=== PATIENT | female | born 1965 | race American Indian/Alaskan Native ===

== ENCOUNTER 2016-10-12 10:08 | Emergency (ER) | payer MEDICAID ==
[2016-10-12 10:37] VITALS: BP 146/99
--- NOTE | 2016-10-12 11:14 | Emergency Department Report ---
Chief Complaint: Dyspnea/Respdistress Stated Complaint: DIFF BREATHING Time Seen by Provider: 10/12/16 11:09 - HPI History of Present Illness: Patient reports difficulty breathing with shaking, productive cough causing chest discomfort that initially started 10/07/16. Patient was seen and treated by her PCP, however to no avail - ROS Review of Systems: all other systems are unremarkable except for documentation in HPI - Exam Vital Signs: Vital Signs 10/12/16 10:32 Temperature 98.4 F Pulse Rate 125 H Respiratory 24 Rate Blood Pressure 146/99 O2 Sat by Pulse 96 Oximetry Physical Exam: Gen: well developed and nourished, NAD Resp: even and unlabored, lungs scattered wheezes throughout, no rales or rhonchi Cardio: heart sounds present S1-S2, tachycardia, no murmur, gallops or ectopy MSE screening note: Focused history and physical exam performed. Due to findings the following was ordered: resp tx, laboratory and radiology studies ordered ED Disposition for MSE Condition: Stable
[2016-10-12] MEDS ORDERED: XOPENEX IH ONE (11:15)
[2016-10-12 11:28] LABS: Basophils % (Auto) 0.8 % (0.0-1.8); Eosinophils % (Auto) 9.1 % (0.0-4.3); Hematocrit 46.4 % (30.3-42.9); Hemoglobin 15.5 gm/dl (10.1-14.3); Mean Corpuscular HGB Conc 33 % (30-34); Mean Corpuscular Hemoglobin 29 pg (28-32); Mean Corpuscular Volume 88 fl (79-97); Platelet Count 225 K/mm3 (140-440); Red Blood Count 5.31 M/mm3 (3.65-5.03); Red Cell Distribution Width 14.9 % (13.2-15.2); White Blood Count 9.9 K/mm3 (4.5-11.0)
[2016-10-12 11:52] LABS: Alanine Aminotransferase 28 units/L (7-56); Albumin 4.2 g/dL (3.9-5); Albumin/Globulin Ratio 1.2 %; Alkaline Phosphatase 106 units/L (35-129); Anion Gap 18 mmol/L; BUN/Creatinine Ratio 7.27; Bilirubin,Total 0.2 mg/dL (0.1-1.2); Blood Urea Nitrogen 8 mg/dL (7-17); Calcium 9.2 mg/dL (8.4-10.2); Carbon Dioxide 25 mmol/L (22-30); Chloride 101.6 mmol/L (98-107); Creatine Kinase 149 units/L (30-135); Creatine Kinase MB 2.2 ng/mL (0.0-4.0); Glucose 105 mg/dL (65-100); Sodium 141 mmol/L (137-145); Total Protein 7.6 g/dL (6.3-8.2)
--- NOTE | 2016-10-12 12:05 | XRay Report ---
ROUTINE CHEST, TWO VIEWS: HISTORY: Dyspnea. The trachea, heart, mediastinal contour, lung brewer and bony thorax are unremarkable. IMPRESSION: Unremarkable chest x-ray.
--- NOTE | 2016-10-14 19:15 | ED Elopement Review ---
ED Pt Elopement review - Results review Lab results: Laboratory Tests 10/12/16 10/12/16 11:21 11:21 WBC 9.9 RBC 5.31 H Hgb 15.5 H Hct 46.4 H MCV 88 MCH 29 MCHC 33 RDW 14.9 Plt Count 225 Lymph % (Auto) 25.4 Jay % (Auto) 10.2 H Eos % (Auto) 9.1 H Baso % (Auto) 0.8 Lymph # 2.5 Jay # 1.0 H Eos # 0.9 H Baso # 0.1 Seg Neutrophils % 54.5 Seg Neutrophils # 5.4 Sodium 141 Potassium 4.0 Chloride 101.6 Carbon Dioxide 25 Anion Gap 18 BUN 8 Creatinine 1.1 Estimated GFR > 60 BUN/Creatinine Ratio 7.27 Glucose 105 H Calcium 9.2 Total Bilirubin 0.2 AST 20 ALT 28 Alkaline Phosphatase 106 Total Creatine Kinase 149 H CK-MB (CK-2) 2.2 CK-MB (CK-2) Rel Index 1.4 Troponin T < 0.010 Total Protein 7.6 Albumin 4.2 Albumin/Globulin Ratio 1.2 Cxr: naf - Call Back decision Pt Call Back Decision: Pt to F/U with PMD (elevated hr likely due to neb, need reassement)
== END 2016-10-12 21:11 | disposition left against medical advice (07) ==
LOC: ED 10:08
DX: R06.00 Dyspnea, unspecified (principal); R05 Cough; R07.89 Other chest pain; Z53.21 Procedure and treatment not carried out due to patient leaving prior to being seen by health care provider
CPT/HCPCS: 36415; 71020; 80053; 82550; 82553; 84484; 85025; 93005; 93010

== ENCOUNTER 2018-10-12 18:23 | Emergency (ER) | payer MEDICAID ==
[2018-10-12 18:49] VITALS: BP 147/86
--- NOTE | 2018-10-12 22:38 | Emergency Department Report ---
ED Rash HPI - HPI Chief Complaint: Skin Rash Stated Complaint: ASTHMA/BUG BITE Time Seen by Provider: 10/12/18 21:55 Duration: 2 Days Location: Back, Upper Extremities, Lower Extremities Rash Symptoms: Yes Itching, No Facial Swelling, No Tongue/Oral Swelling, No Breathing Difficulties, No Choking Sensation, No Wheezing/Dyspnea, No Peeling, No Blistering, No Fever, No Lightheaded, No Malaise, No Myalgias Severity: mild Other History: This is a 53-year-old female nontoxic, well nourished in appearance, no acute signs of distress presents to the ED with c/o of multiple small bites from bedbugs. Patient stated that she changed her room in the house full of other roomates and has been sleeping in a different bed and then developed the symptoms. Patient stated she felt some bite kumar and then that worsened throughout the night. Patient denies any fever, chills, nausea, vomiting, chest pain, front of breath, headache or stiff neck. Patient denies any allergies with past medical history of asthma. Patient states she is currently out of her inhaler and is requesting for her inhaler. Patient otherwise denies any asthma symptoms. ED Review of Systems ROS: Stated complaint: ASTHMA/BUG BITE Other details as noted in HPI Constitutional: denies: chills, fever Eyes: denies: eye pain, eye discharge, vision change ENT: denies: ear pain, throat pain Respiratory: denies: cough, shortness of breath, wheezing Cardiovascular: denies: chest pain, palpitations Endocrine: no symptoms reported Gastrointestinal: denies: abdominal pain, nausea, diarrhea Genitourinary: denies: urgency, dysuria, discharge Musculoskeletal: denies: back pain, joint swelling, arthralgia Skin: rash. denies: lesions Neurological: denies: headache, weakness, paresthesias Psychiatric: denies: anxiety, depression Hematological/Lymphatic: denies: easy bleeding, easy bruising ED Past Medical Hx - Past Medical History Previous Medical History?: Yes Hx Asthma: Yes - Social History Smoking Status: Never Smoker Substance Use Type: None - Medications Home Medications: Home Medications Medication Instructions Recorded Confirmed Last Taken Type Albuterol Sulfate [Ventolin HFA] 2 puff IH Q4H PRN #1 hfa.aer.ad 09/13/18 Unknown Rx traMADol [Ultram] 50 mg PO Q6HR PRN #12 tablet 09/13/18 Unknown Rx ALBUTEROL Inhaler(NF) [VENTOLIN 2 puff IH Q4-6H PRN #1 inha 10/12/18 Unknown Rx Inhaler(NF)] Triamcinolone 0.5% [Kenalog 0.5% 1 applic TP TID #1 tube 10/12/18 Unknown Rx CREAM] diphenhydrAMINE [Benadryl CAP] 25 mg PO Q6HR PRN #20 capsule 10/12/18 Unknown Rx Rash Exam - Exam General: Vital signs noted. No distress. Alert and acting appropriately. HEENT: No Periorbital Edema, No Conjuctival Injection, No Chemosis, No Perioral Edema, No Tongue Edema, No Uvular Edema, No Compromised Airway, No Drooling Lungs: Yes Good Air Exchange (Normal Breath Sounds), No Wheezes, No Ronchi, No Stridor, No Cough, No Labored Respirations, No Retractions, No Use of Accessory Muscles, No Other Abnormal Lung Sounds Heart: Yes Regular, No Murmur Skin: Yes Other (erythematous papule with a central hemorrhagic punctum), No Urticarial Rash, No Maculopapular Rash, No Morbilliform rash, No Bulla(e), No Excoriations, No Weeping, No Tenderness, No Erythema, No Edema, No Encrustations Other: Positive: Abdomen Normal, Neurologic Normal, Musculoskeletal Normal ED Course Vital Signs 10/12/18 18:46 Temperature 98.6 F Pulse Rate 79 Respiratory 16 Rate Blood Pressure 147/86 O2 Sat by Pulse 98 Oximetry - Reevaluation(s) Reevaluation #1: 10/12/18 22:39 Patient is speaking in full sentences with no signs of distress noted. ED Medical Decision Making - Medical Decision Making This is a 53-year-old female that presents with bedbugs. Patient is stable and was examined by me. Patient was educated on proper treatment for bedbugs at home as well as using heat in the bed area. I instructed the patient that she must wash her clothing and heat. Patient discharged with Kenalog cream. Patient was referred to Follow-up with a primary care doctor in 3-5 days or if symptoms worsen and continue return to emergency room as soon as possible. At time of discharge, the patient does not seem toxic or ill in appearance. No acute signs of distress noted. Patient agrees to discharge treatment plan of care. No further questions noted by the patient. Critical care attestation.: If time is entered above; I have spent that time in minutes in the direct care of this critically ill patient, excluding procedure time. ED Disposition Clinical Impression: Bed bug bite Qualifiers: Encounter type: initial encounter Qualified Code(s): W57.XXXA - Bitten or stung by nonvenomous insect and other nonvenomous arthropods, initial encounter Disposition: TO HOME OR SELFCARE Is pt being admited?: No Does the pt Need Aspirin: No Condition: Stable Instructions: Diphenhydramine (By mouth), Insect Bite or Sting (ED) Additional Instructions: Follow-up with a primary care doctor in 3-5 days or if symptoms worsen and continue return to emergency room as soon as possible. Prescriptions: ALBUTEROL Inhaler(NF) [VENTOLIN Inhaler(NF)] 2 puff IH Q4-6H PRN #1 inha PRN Reason: Wheezing diphenhydrAMINE [Benadryl CAP] 25 mg PO Q6HR PRN #20 capsule PRN Reason: Itching Triamcinolone 0.5% [Kenalog 0.5% CREAM] 1 applic TP TID #1 tube Referrals: PRIMARY CAREMD [Primary Care Provider] - 3-5 Days LAN ESPOSITO MD [Staff Physician] - 3-5 Days [facility] [Outside] - 3-5 Days
== END 2018-10-12 23:00 | disposition home or self-care (01) ==
LOC: EDBD → ED 18:23
DX: T14.8XXA Other injury of unspecified body region, initial encounter (principal); J45.909 Unspecified asthma, uncomplicated; W57.XXXA Bitten or stung by nonvenomous insect and other nonvenomous arthropods, initial encounter; Y93.89 Activity, other specified; Y99.8 Other external cause status; Y92.019 Unspecified place in single-family (private) house as the place of occurrence of the external cause
CPT/HCPCS: 99282

== ENCOUNTER 2018-12-20 16:56 | Emergency (ER) | payer MEDICAID ==
--- NOTE | 2018-12-20 17:40 | Emergency Department Report ---
Chief Complaint: Extremity Injury, Lower Stated Complaint: RIGHT ANKLE PAIN Time Seen by Provider: 12/20/18 17:35 - HPI History of Present Illness: This is a 53 y.o. female that presents to ER with pain to RLE s/p fall around 1530 today. Patient reports pain to right foot with weight bearing. Denies swelling or obvious deformity. - ROS Review of Systems: right dorsal pain - Exam Vital Signs: Vital Signs 12/20/18 17:39 Temperature 98.5 F Pulse Rate 96 H Respiratory 18 Rate Blood Pressure 163/89 O2 Sat by Pulse 100 Oximetry MSE screening note: Focused history and physical exam performed. Due to findings the following was ordered: XR right foot Fast track for further evaluation. ED Disposition for MSE Condition: Stable
[2018-12-20 17:42] VITALS: BP 163/89
[2018-12-20] MEDS ORDERED: IBUPROFEN PO ONE ×2 (18:09→18:12)
--- NOTE | 2018-12-20 19:30 | XRay Report ---
EXAM: XR FOOT 3+V RT HISTORY: pain to 3rd to 5th metatarsals TECHNIQUE: 3 views COMPARISON: None available. FINDINGS: There is no acute bony fracture, or joint subluxation or dislocation seen. No focal bone erosion or sclerosis is seen. No evidence for inflammatory or degenerative arthritis is seen. No soft tissue emp hysema, radiodense soft tissue abnormality or foreign body is seen. IMPRESSION: 1. No acute bony fracture, or joint subluxation or dislocation seen. 2. No soft tissue emphysema, radiodense soft tissue abnormality or foreign body seen. This document is electronically signed by Jana Philippe MD., December 20 2018 07:28:16 PM ET
[2018-12-20] MEDS ORDERED: NORCO 5/325 PO ONE (19:55)
--- NOTE | 2018-12-20 20:01 | Emergency Department Report ---
ED Lower Extremity HPI - General Chief Complaint: Extremity Injury, Lower Stated Complaint: RIGHT ANKLE PAIN Time Seen by Provider: 12/20/18 17:35 Source: patient Mode of arrival: Ambulatory Limitations: No Limitations - History of Present Illness Initial Comments: pt is a 53 y/o aaf who rolled her right ankle crossing street today now complains of 7/10 aching tenderness unable to bear weight. Patient did however ambulate to the ED today Complaint: ankle injury Onset/Timin -: hour(s) Injury: Ankle: Right Type of Injury: eversion Place: home Severity: moderate Severity scale (0 -10): 5 Improves With: nothing Worsens With: weight bearing, movement, palpation Context: fall, walking Associated Symptoms: swelling, tingling - Related Data Previous Rx's Medication Instructions Recorded Last Taken Type Albuterol Sulfate [Ventolin HFA] 2 puff IH Q4H PRN #1 hfa.aer.ad 09/13/18 Unknown Rx traMADol [Ultram] 50 mg PO Q6HR PRN #12 tablet 09/13/18 Unknown Rx ALBUTEROL Inhaler(NF) [VENTOLIN 2 puff IH Q4-6H PRN #1 inha 10/12/18 Unknown Rx Inhaler(NF)] Triamcinolone 0.5% [Kenalog 0.5% 1 applic TP TID #1 tube 10/12/18 Unknown Rx CREAM] diphenhydrAMINE [Benadryl CAP] 25 mg PO Q6HR PRN #20 capsule 10/12/18 Unknown Rx Naproxen 500 mg PO BID #30 tablet 12/20/18 Unknown Rx Allergies Allergy/AdvReac Type Severity Reaction Status Date / Time No Known Allergies Allergy Unverified 09/13/18 08:32 ED Review of Systems ROS: Stated complaint: RIGHT ANKLE PAIN Other details as noted in HPI Constitutional: denies: chills, fever Eyes: denies: eye pain, eye discharge, vision change ENT: denies: ear pain, throat pain Respiratory: denies: cough, shortness of breath, wheezing Cardiovascular: denies: chest pain, palpitations Endocrine: no symptoms reported Gastrointestinal: denies: abdominal pain, nausea, diarrhea Genitourinary: denies: urgency, dysuria, discharge Musculoskeletal: joint swelling Skin: as per HPI Neurological: denies: headache, weakness, paresthesias Psychiatric: denies: anxiety, depression Hematological/Lymphatic: denies: easy bleeding, easy bruising ED Past Medical Hx - Past Medical History Previous Medical History?: Yes Hx Asthma: Yes Additional medical history: hearing impaired - Surgical History Past Surgical History?: Yes Additional Surgical History: tubal ligation - Social History Smoking Status: Never Smoker Substance Use Type: None - Medications Home Medications: Home Medications Medication Instructions Recorded Confirmed Last Taken Type Albuterol Sulfate [Ventolin HFA] 2 puff IH Q4H PRN #1 hfa.aer.ad 09/13/18 Unknown Rx traMADol [Ultram] 50 mg PO Q6HR PRN #12 tablet 09/13/18 Unknown Rx ALBUTEROL Inhaler(NF) [VENTOLIN 2 puff IH Q4-6H PRN #1 inha 10/12/18 Unknown Rx Inhaler(NF)] Triamcinolone 0.5% [Kenalog 0.5% 1 applic TP TID #1 tube 10/12/18 Unknown Rx CREAM] diphenhydrAMINE [Benadryl CAP] 25 mg PO Q6HR PRN #20 capsule 10/12/18 Unknown Rx Naproxen 500 mg PO BID #30 tablet 12/20/18 Unknown Rx ED Physical Exam - General Limitations: No Limitations General appearance: alert, in no apparent distress - Head Head exam: Present: atraumatic, normocephalic - Eye Eye exam: Present: normal appearance, PERRL, EOMI Pupils: Present: normal accommodation - ENT ENT exam: Present: normal orophraynx, mucous membranes moist - Neck Neck exam: Present: normal inspection, full ROM - Respiratory Respiratory exam: Present: normal lung sounds bilaterally. Absent: respiratory distress, wheezes, stridor, chest wall tenderness - Cardiovascular Cardiovascular Exam: Present: regular rate, normal heart sounds - GI/Abdominal GI/Abdominal exam: Present: soft, normal bowel sounds - Rectal Rectal exam: Present: deferred - Extremities Exam Extremities exam: Present: normal inspection, tenderness (right lateral ankle ), normal capillary refill, joint swelling - Expanded Lower Extremity Exam Right Ankle exam: Present: tenderness, swelling. Absent: abrasion, laceration, ecchymosis, deformity, crepidus, dislocation, erythema, anterior draw sign Foot/Toe exam: Present: normal inspection, full ROM, tenderness. Absent: swelling, abrasion, laceration, ecchymosis, deformity, crepidus, dislocation, erythema, amputation, puncture wound, foreign body, calcaneal tenderness, tenderness at base of 5th metatarsal, nail avulsion, subungual hematoma Neuro vascular tendon exam: Absent: pulse deficit, abnormal cap refill, motor deficit, sensory deficit, tendon deficit Gait: Positive: observed and limited by pain - Back Exam Back exam: Present: normal inspection, full ROM. Absent: tenderness, CVA tenderness (R), CVA tenderness (L), muscle spasm, paraspinal tenderness, rash noted - Neurological Exam Neurological exam: Present: alert, oriented X3, CN II-XII intact, normal gait. Absent: reflexes normal - Psychiatric Psychiatric exam: Present: normal affect, normal mood - Skin Skin exam: Present: warm, dry, intact, normal color. Absent: rash ED Course Vital Signs 12/20/18 17:39 Temperature 98.5 F Pulse Rate 96 H Respiratory 18 Rate Blood Pressure 163/89 O2 Sat by Pulse 100 Oximetry ED Lower Extremity MDM - Radiology Data Radiology results: report reviewed, image reviewed Ordering Physician: GHANSHYAM FROST Date of Service: 12/20/18 Procedure(s): XR foot 3+V RT Accession Number(s): [id number] cc: GHANSHYAM FROST Fluoro Time In Minutes: EXAM: XR FOOT 3+V RT HISTORY: pain to 3rd to 5th metatarsals TECHNIQUE: 3 views COMPARISON: None available. FINDINGS: There is no acute bony fracture, or joint subluxation or dislocation seen. No focal bone erosion or sclerosis is seen. No evidence for inflammatory or degenerative arthritis is seen. No soft tissue emphysema, radiodense soft tissue abnormality or foreign body is seen. IMPRESSION: 1. No acute bony fracture, or joint subluxation or dislocation seen. 2. No soft tissue emphysema, radiodense soft tissue abnormality or foreign body seen. This document is electronically signed by Kelly Smiley MD., December 20 2018 07:28:16 PM ET Transcribed By: [facility] Dictated By: KELLY SMILEY Electronically Authenticated By: KELLY SMILEY Signed Date/Time: 12/20/181929 DD/ 13 TD/TT: 12/20/181813 - Medical Decision Making This is an ankle sprain x-ray no fracture no soft tissue abnormality plan Mateo wrap crutches patient demonstrates an effusion signed obesity to home . NSAIDs Rice therapy patient will follow up with PCP in 2-3 days ED should symptoms worsen patient verbalizes agreement and understanding with discharge plan patient be seen home in stable condition at this time Critical care attestation.: If time is entered above; I have spent that time in minutes in the direct care of this critically ill patient, excluding procedure time. ED Disposition Clinical Impression: Ankle sprain Qualifiers: Encounter type: initial encounter Involved ligament of ankle: unspecified ligament Laterality: right Qualified Code(s): S93.401A - Sprain of unspecified ligament of right ankle, initial encounter Disposition: TO HOME OR SELFCARE Is pt being admited?: No Does the pt Need Aspirin: No Condition: Stable Instructions: Ankle Exercises (GEN), Ankle Sprain (ED) Prescriptions: Naproxen 500 mg PO BID #30 tablet Referrals: WENDIE PARRISH MD [Primary Care Provider] - 3-5 Days Forms: Work/School Release Form(ED) Time of Disposition: 20:09
--- NOTE | 2018-12-20 20:11 | XRay Report ---
PROCEDURE: RIGHT ANKLE, 3 VIEWS TECHNIQUE: RIGHT ankle radiographs, AP, lateral, and oblique views. CPT 39471 HISTORY: Trauma COMPARISONS: None . FINDINGS: Fracture (s) and/or Dislocation(s): None . Alignment: Normal . Joint space(s): Normal . Soft tissues: Normal . Bone mineralization: Normal . Foreign bodies: None . Calcaneal spurring: None . IMPRESSION: Normal Examination . This document is electronically signed by Hardy Lui MD., December 20 2018 08:08:47 PM ET
== END 2018-12-20 20:27 | disposition home or self-care (01) ==
LOC: EDBD → ED 16:56
DX: S93.401A Sprain of unspecified ligament of right ankle, initial encounter (principal); J45.909 Unspecified asthma, uncomplicated; Z98.51 Tubal ligation status; X58.XXXA Exposure to other specified factors, initial encounter; Y93.89 Activity, other specified; Y92.89 Other specified places as the place of occurrence of the external cause; Y99.8 Other external cause status

== ENCOUNTER 2019-03-28 11:17 | Inpatient (IN) | payer MEDICAID ==
[2019-03-28] MEDS ORDERED: MAGNESIUM SULFATE 2GM/50ML 2 GM/50 ML BAG IV ONE (11:30)
[2019-03-28] MEDS ORDERED: ATROVENT IH ONE (11:30)
[2019-03-28] MEDS ORDERED: ADRENALINE P/F SUB-Q ONE (11:30)
[2019-03-28] MEDS ORDERED: PROVENTIL IH ONE (11:30)
[2019-03-28] MEDS ORDERED: NACL 0.9% 500 ML 500 ML IV ONE (11:30)
--- NOTE | 2019-03-28 11:35 | Emergency Department Report ---
ED Asthma HPI - General Chief Complaint: Adult Asthma Stated Complaint: KEIKO Time Seen by Provider: 03/28/19 11:29 Source: patient, EMS (verbal report received from EMS.ems notes not available at time of chart dictation), RN notes reviewed Mode of arrival: Stretcher Limitations: Physical Limitation - History of Present Illness Initial Comments: Primary care Dr.: Dr. Alex Chong Past medical history, asthma, patient hard of hearing, has left-sided hearing implants. This is a 53-year-old female with a reported history of asthma. The patient is brought to the hospital by EMS for asthma attack. Her primary care doctor gave her multiple nebs, Decadron 10 subcutaneous, and EMS gave additional nebs, as well as magnesium. Upon arrival to the ER, patient tachypnea, wheezing, using accessory muscles. She indicated body pain, but no focal pain per se. The patient denied DVT, pulmonary embolus risk factors. Symptoms somewhat improved with additional albuterol, Atrovent and epinephrine, however, still wheezing, tachycardic, tachypneic, with retractions, therefore admitted to the medical service under the care of Dr. Durbin, for presumed asthma exacerbation. Complaint: "asthma attack", shortness of breath, wheezing -: Sudden - Related Data Previous Rx's Medication Instructions Recorded Last Taken Type Albuterol Sulfate [Ventolin HFA] 2 puff IH Q4H PRN #1 [email or web address] 09/13/18 Unknown Rx Allergies Allergy/AdvReac Type Severity Reaction Status Date / Time No Known Allergies Allergy Unverified 09/13/18 08:32 ED Review of Systems ROS: Stated complaint: KEIKO Other details as noted in HPI Comment: Unobtainable due to pts medical conditions ENT: congestion Respiratory: SOB with exertion, SOB at rest, wheezing Cardiovascular: dyspnea on exertion Gastrointestinal: denies: vomiting Musculoskeletal: arthralgia, myalgia Neurological: weakness Psychiatric: anxiety ED Past Medical Hx - Past Medical History Hx Asthma: Yes Additional medical history: hearing impaired - Surgical History Additional Surgical History: tubal ligation - Social History Smoking Status: Former Smoker Substance Use Type: None - Medications Home Medications: Home Medications Medication Instructions Recorded Confirmed Last Taken Type Albuterol Sulfate [Ventolin HFA] 2 puff IH Q4H PRN #1 [email or web address] 12/11/18 06/25/19 Unknown Rx ED Physical Exam - General Limitations: Physical Limitation General appearance: alert, anxious, in distress - Head Head exam: Present: atraumatic, normocephalic - Eye Eye exam: Present: normal appearance, EOMI. Absent: nystagmus - ENT ENT exam: Present: normal exam, normal orophraynx, mucous membranes moist, normal external ear exam - Neck Neck exam: Present: normal inspection, full ROM - Respiratory Respiratory exam: Present: respiratory distress, wheezes, rhonchi, accessory muscle use - Cardiovascular Cardiovascular Exam: Present: normal rhythm, tachycardia, normal heart sounds. Absent: systolic murmur, diastolic murmur, rubs, gallop - GI/Abdominal GI/Abdominal exam: Present: soft. Absent: distended, tenderness, guarding, rebound, rigid, pulsatile mass - Extremities Exam Extremities exam: Present: normal inspection, full ROM, other (2+ pulses noted in the bilateral upper, lower extremities. Compartments soft. No long bony tenderness. The pelvis is stable.). Absent: pedal edema, calf tenderness - Back Exam Back exam: Present: normal inspection, full ROM. Absent: tenderness, CVA tenderness (R), CVA tenderness (L), paraspinal tenderness, vertebral tenderness - Neurological Exam Neurological exam: Present: alert, other (there is no facial droop. The tongue is midline. Moving 4 extremity spontaneously. Speaking in partial sentences.) - Psychiatric Psychiatric exam: Present: anxious - Skin Skin exam: Present: warm, dry, intact, normal color. Absent: rash ED Course Vital Signs 03/28/19 03/28/19 03/28/19 11:24 11:30 11:31 Temperature 98.6 F Pulse Rate 101 H 109 H Respiratory 32 H 30 H Rate Blood Pressure 187/96 187/96 O2 Sat by Pulse 97 94 95 Oximetry 03/28/19 03/28/19 03/28/19 11:46 12:00 12:15 Temperature Pulse Rate 101 H 101 H 89 Respiratory 27 H 32 H 27 H Rate Blood Pressure 171/96 171/96 O2 Sat by Pulse 100 99 99 Oximetry 03/28/19 03/28/19 12:30 12:45 Temperature Pulse Rate 82 78 Respiratory 24 23 Rate Blood Pressure 144/68 144/68 O2 Sat by Pulse 100 100 Oximetry ED Medical Decision Making - Lab Data Result diagrams: 03/28/19 11:37 03/28/19 11:37 Vital Signs 03/28/19 03/28/19 03/28/19 11:24 11:30 11:31 Temperature 98.6 F Pulse Rate 101 H 109 H Respiratory 32 H 30 H Rate Blood Pressure 187/96 187/96 O2 Sat by Pulse 97 94 95 Oximetry 03/28/19 03/28/19 03/28/19 11:46 12:00 12:15 Temperature Pulse Rate 101 H 101 H 89 Respiratory 27 H 32 H 27 H Rate Blood Pressure 171/96 171/96 O2 Sat by Pulse 100 99 99 Oximetry 03/28/19 03/28/19 12:30 12:45 Temperature Pulse Rate 82 78 Respiratory 24 23 Rate Blood Pressure 144/68 144/68 O2 Sat by Pulse 100 100 Oximetry Lab Results 03/28/19 03/28/19 03/28/19 Range/Units 11:37 11:37 11:37 WBC 7.4 (4.5-11.0) K/mm3 RBC 5.15 H (3.65-5.03) M/mm3 Hgb 15.4 H (10.1-14.3) gm/dl Hct 45.3 H (30.3-42.9) % MCV 88 (79-97) fl MCH 30 (28-32) pg MCHC 34 (30-34) % RDW 14.7 (13.2-15.2) % Plt Count 287 (140-440) K/mm3 Lymph % (Auto) 29.9 (13.4-35.0) % [place] % (Auto) 7.4 H (0.0-7.3) % Eos % (Auto) 7.0 H (0.0-4.3) % Baso % (Auto) 0.6 (0.0-1.8) % Lymph # 2.2 (1.2-5.4) K/mm3 [place] # 0.5 (0.0-0.8) K/mm3 Eos # 0.5 H (0.0-0.4) K/mm3 Baso # 0.0 (0.0-0.1) K/mm3 Seg Neutrophils % 55.1 (40.0-70.0) % Seg Neutrophils # 4.1 (1.8-7.7) K/mm3 PT 13.0 (12.2-14.9) Sec. INR 1.01 (0.87-1.13) Sodium 143 (137-145) mmol/L Potassium 4.4 (3.6-5.0) mmol/L Chloride 104.8 (98-107) mmol/L Carbon Dioxide 21 L (22-30) mmol/L Anion Gap 22 mmol/L BUN 9 (7-17) mg/dL Creatinine 1.0 (0.7-1.2) mg/dL Estimated GFR > 60 ml/min BUN/Creatinine Ratio 9 % Glucose 101 H (65-100) mg/dL Calcium 9.8 (8.4-10.2) mg/dL Magnesium 3.80 H (1.7-2.3) mg/dL - EKG Data -: EKG Interpreted by Me EKG shows normal: sinus rhythm Rate: tachycardia - EKG Data 03/28/19 14:08 This is a sinus tachycardia, 107 beats minute, normal axis, QTC prolonged, high left ventricular voltage, motion artifact, this is an abnormal EKG, this EKG is not consistent with ST elevation myocardial infarction. - Radiology Data Radiology results: report reviewed, image reviewed X-ray of the chest shows no acute disease, chronic emphysematous changes noted. - Medical Decision Making Differential diagnosis, including but not limited to: Bronchitis, pneumonia, asthma, status asthmaticus Assessment and plan: 53-year-old female, endorsed no DVT or pulmonary embolus risk factors, with refractory asthma and multiple medications, BiPAP has been ordered, patient to be admitted to the medical service for asthma exacerbation. Protecting airway this time, somewhat improved after initial interventions. Critical care time in (mins) excluding proc time.: 35 Critical care attestation.: If time is entered above; I have spent that time in minutes in the direct care of this critically ill patient, excluding procedure time. ED Disposition Clinical Impression: Status asthmaticus Qualifiers: Asthma severity: severe Asthma persistence: unspecified Qualified Code(s): J45.902 - Unspecified asthma with status asthmaticus Disposition: OP ADMIT IP TO THIS HOSP Is pt being admited?: Yes Condition: Serious
[2019-03-28 12:09] LABS: Basophils % (Auto) 0.6 % (0.0-1.8); Eosinophils # (Auto) 0.5 K/mm3 (0.0-0.4); Hematocrit 45.3 % (30.3-42.9); Hemoglobin 15.4 gm/dl (10.1-14.3); Lymphocytes # (Auto) 2.2 K/mm3 (1.2-5.4); Lymphocytes % (Auto) 29.9 % (13.4-35.0); Mean Corpuscular HGB Conc 34 % (30-34); Mean Corpuscular Volume 88 fl (79-97); Monocytes # (Auto) 0.5 K/mm3 (0.0-0.8); Monocytes % (Auto) 7.4 % (0.0-7.3); Platelet Count 287 K/mm3 (140-440); Red Blood Count 5.15 M/mm3 (3.65-5.03); Red Cell Distribution Width 14.7 % (13.2-15.2)
[2019-03-28 12:10] LABS: BUN/Creatinine Ratio 9; Blood Urea Nitrogen 9 mg/dL (7-17); Calcium 9.8 mg/dL (8.4-10.2); Hemolysis Index 6
--- NOTE | 2019-03-28 12:15 | XRay Report ---
AP CHEST: HISTORY: Dyspnea The lungs are moderately hyperinflated consistent with underlying emphysema. No evidence for infiltrate, pleural effusion or pneumothorax. Normal heart and mediastinal structures. The bony thorax is grossly intact. IMPRESSION: Emphysema. No significant change since 10/12/16.
[2019-03-28 12:20] LABS: INR 1.01 (0.87-1.13)
--- NOTE | 2019-03-28 13:41 | History and Physical Report ---
History of Present Illness Chief complaint: I cant breathe History of present illness: 53 YO Female with Asthma, Hearing Loss presents to ED for evaluation. Pt is in respiratory distress and cannot speak in complete sentences. Pt provides limited history. As per patient, she has experienced shortness of breath over the past week with persistently worsening symptoms over the past 3 days. Pt acknowledges nonproductive cough, increased nebulizer therapy without relief. Pt was seen and evaluated by her PCP, Dr. Alex Chong in the office today and was found to be in respiratory distress. Pt symptoms have not responded to steroids, and increased nebulizer therapy. Pt has failed outpatient therapy. Pt found to have pulse oximetry of 81% in her PCP office today. EMS notified and patient found to be in distress, and transported to [facility]. Pt seen and evaluated in ED and found to have Status Asthmaticus complicated by Acute hypoxemic Respiratory Failure. Pt treated with NIPPV, nebulizer therapy, IV steroid therapy with improvement in symptoms. Pt admitted to medical floor. Pt denies fever, chills, CP, Palpitations, VND, Trauma, Falls, Unilateral leg swelling, calf pain, prolonged travel/immobility, individual/family history of DVT/PE/Blood Clotting Disorders, skin rash, or recent ill contacts. No prior admission for review. All listed medication reconciled at time of admission. Past History Past Medical History: other (Asthma, hearing impaired) Past Surgical History: Other (tubal ligation) Social history: single. denies: smoking, alcohol abuse, prescription drug abuse Family history: no significant family history (reviewed) Medications and Allergies Allergies Allergy/AdvReac Type Severity Reaction Status Date / Time No Known Allergies Allergy Unverified 09/13/18 08:32 Home Medications Medication Instructions Recorded Confirmed Last Taken Type Albuterol Sulfate [Ventolin HFA] 2 puff IH Q4H PRN #1 [email or web address] 09/13/18 03/28/19 Unknown Rx Review of Systems Constitutional: no weight loss, no weight gain, no fever, no chills Ears, nose, mouth and throat: no ear pain, no ear discharge, no tinnitis, no decreased hearing, no nose pain, no nasal congestion Breasts: no change in shape, no swelling, no mass Cardiovascular: no chest pain, no orthopnea, no palpitations, no rapid/irregular heart beat Respiratory: cough, shortness of breath, wheezing, no cough with sputum, no excessive sputum, no hemoptysis Gastrointestinal: no nausea, no vomiting, no diarrhea, no constipation Genitourinary Female: no pelvic pain, no flank pain, no menorrhagia, no dysuria, no urinary frequency, no urgency Rectal: no pain, no incontinence, no bleeding Musculoskeletal: no neck stiffness, no neck pain, no shooting arm pain, no arm numbness/tingling, no low back pain, no shooting leg pain Integumentary: no rash, no pruritis, no redness, no sores, no wounds Neurological: no paralysis, no weakness, no parathesias, no numbness, no tingling, no seizures Psychiatric: no anxiety, no memory loss, no change in sleep habits, no sleep disturbances, no insomnia, no hypersomnia, no change in appetite Endocrine: no cold intolerance, no heat intolerance, no polyphagia, no excessive thirst, no polydipsia, no polyuria, no nocturia Hematologic/Lymphatic: no easy bruising, no easy bleeding Allergic/Immunologic: no urticaria, no allergic rhinitis, no wheezing Exam - Constitutional Vitals: Temp Pulse Resp BP Pulse Ox 98.6 F 78 23 144/68 100 03/28/19 11:31 03/28/19 12:45 03/28/19 12:45 03/28/19 12:45 03/28/19 12:45 General appearance: Present: mild distress - EENT Eyes: Present: PERRL ENT: hearing intact, clear oral mucosa - Neck Neck: Present: supple, normal ROM - Respiratory Respiratory effort: labored, accessory muscle use, stridor Respiratory: bilateral: diminished, wheezing - Cardiovascular Heart Sounds: Present: S1 & S2. Absent: rub, click - Extremities Extremities: pulses symmetrical, No edema Peripheral Pulses: within normal limits - Abdominal General gastrointestinal: Present: soft, non-tender, non-distended, normal bowel sounds Female genitourinary: Present: normal - Integumentary Integumentary: Present: clear, warm, dry - Musculoskeletal Musculoskeletal: gait normal, strength equal bilaterally - Psychiatric Psychiatric: appropriate mood/affect, intact judgment & insight - Neurologic Neurologic: CNII-XII intact, moves all extremities Results - Labs CBC & Chem 7: 03/28/19 11:37 03/28/19 11:37 Labs: Abnormal lab results 03/28/19 03/28/19 Range/Units 11:37 11:37 RBC 5.15 H (3.65-5.03) M/mm3 Hgb 15.4 H (10.1-14.3) gm/dl Hct 45.3 H (30.3-42.9) % [place] % (Auto) 7.4 H (0.0-7.3) % Eos % (Auto) 7.0 H (0.0-4.3) % Eos # 0.5 H (0.0-0.4) K/mm3 Carbon Dioxide 21 L (22-30) mmol/L Glucose 101 H (65-100) mg/dL Magnesium 3.80 H (1.7-2.3) mg/dL Assessment and Plan - Patient Problems (1) Acute hypoxemic respiratory failure Current Visit: Yes Status: Acute Plan to address problem: Admit to medical floor, chest x ray, pulse oximetry, d dimer, nebulizer therapy, NIPPV as clinically indicated,treat status asthmaticus. (2) Acidosis Current Visit: Yes Status: Acute Plan to address problem: IVF resuscitation therapy, repeat bmp in am. (3) Hypertensive urgency Current Visit: Yes Status: Acute Plan to address problem: Monitor BPq shift, IV hydralazine PRN, avoid beta nicci therapy, (4) Status asthmaticus Current Visit: Yes Status: Acute Qualifiers: Asthma severity: severe Asthma persistence: unspecified Qualified Code(s): J45.902 - Unspecified asthma with status asthmaticus Plan to address problem: Nebulizer therapy, chest x ray, NIPPV, Magnesium, nebulizer therapy, ABG, pulse oximetry, Iv steroid therapy. (5) DVT prophylaxis Current Visit: Yes Status: Acute Plan to address problem: SCD to BLE while in bed, prophylactic lovenox
[2019-03-28] MEDS ORDERED: SODIUM CHLORIDE FLUSH SYRINGE 10 ML IV PRN (13:44)
[2019-03-28] MEDS ORDERED: ZOFRAN IV PRN (13:44)
[2019-03-28] MEDS ORDERED: TYLENOL PO PRN (13:44)
[2019-03-28] MEDS ORDERED: APRESOLINE IV PRN (13:48)
[2019-03-28] MEDS ORDERED: SOLU-Medrol IV ONE (14:46)
[2019-03-28] MEDS ORDERED: SOLU-Medrol ONE (14:58)
[2019-03-28] MEDS: ZITHROMAX 500 MG in NACL 0.9% 250ML 250 ML IV SCH (15:56)
[2019-03-28] MEDS ORDERED: PERCOCET 5/325 ONE (17:29)
[2019-03-28] MEDS: PERCOCET 5/325 PO PRN ×2 (17:34→23:04)
[2019-03-28] MEDS: PROVENTIL IH PRN (22:56)
[2019-03-28] MEDS: LOVENOX SUB-Q SCH (23:03)
[2019-03-28] MEDS: SOLU-Medrol IV SCH (23:10)
[2019-03-28] MEDS: SODIUM CHLORIDE FLUSH SYRINGE 10 ML IV SCH (23:11)
[2019-03-29 08:07] LABS: Basophils # (Auto) 0.1 K/mm3 (0.0-0.1); Basophils % (Auto) 0.5 % (0.0-1.8); Eosinophils % (Auto) 0.1 % (0.0-4.3); Hematocrit 41.8 % (30.3-42.9); Hemoglobin 14.2 gm/dl (10.1-14.3); Lymphocytes # (Auto) 1.3 K/mm3 (1.2-5.4); Lymphocytes % (Auto) 10.8 % (13.4-35.0); Mean Corpuscular HGB Conc 34 % (30-34); Mean Corpuscular Volume 88 fl (79-97); Monocytes # (Auto) 0.8 K/mm3 (0.0-0.8); Monocytes % (Auto) 6.3 % (0.0-7.3); Platelet Count 258 K/mm3 (140-440); Red Blood Count 4.76 M/mm3 (3.65-5.03); Red Cell Distribution Width 14.5 % (13.2-15.2)
[2019-03-29 08:30] LABS: Alanine Aminotransferase 11 units/L (7-56); Albumin 4.2 g/dL (3.9-5); BUN/Creatinine Ratio 14; Blood Urea Nitrogen 14 mg/dL (7-17); Calcium 9.3 mg/dL (8.4-10.2); Hemolysis Index 2
[2019-03-29] MEDS: SOLU-Medrol IV SCH ×2 (09:35→23:06)
[2019-03-29] MEDS: SODIUM CHLORIDE FLUSH SYRINGE 10 ML IV SCH ×2 (09:36→23:06)
--- NOTE | 2019-03-29 11:33 | Progress Note ---
Assessment and Plan Assessment and plan: Acute hypoxic respiratory failure. Etiology secondary to acute asthma exacerbation. Continue with supplemental oxygen and monitor closely. Accelerated hypertension. Continue antihypertensive medications. IV hydralazine PRN Acute asthma exacerbation. Nebulizer therapy, chest x ray, NIPPV, Magnesium, nebulizer therapy, ABG, pulse oximetry, Iv steroid therapy. History Interval history: Patient still complains of shortness of breath Hospitalist Physical - Constitutional Vitals: Temp Pulse Resp BP Pulse Ox 98.6 F 103 H 24 152/79 94 03/29/19 05:48 03/29/19 05:48 03/29/19 05:48 03/29/19 05:48 03/29/19 08:38 General appearance: Present: mild distress - EENT Eyes: Present: PERRL, EOM intact ENT: hearing intact, clear oral mucosa, dentition normal - Neck Neck: Present: supple, normal ROM - Respiratory Respiratory effort: normal Respiratory: bilateral: CTA - Cardiovascular Rhythm: regular Heart Sounds: Present: S1 & S2. Absent: gallop, rub - Extremities Extremities: no ischemia, No edema, Full ROM - Abdominal General gastrointestinal: soft, non-tender, non-distended, normal bowel sounds - Integumentary Integumentary: Present: clear, warm, dry - Neurologic Neurologic: CNII-XII intact, moves all extremities Results - Labs CBC & Chem 7: 03/29/19 07:25 03/29/19 07:25 Labs: Laboratory Last Values WBC 12.3 K/mm3 (4.5-11.0) H 03/29/19 07:25 RBC 4.76 M/mm3 (3.65-5.03) 03/29/19 07:25 Hgb 14.2 gm/dl (10.1-14.3) 03/29/19 07:25 Hct 41.8 % (30.3-42.9) 03/29/19 07:25 MCV 88 fl (79-97) 03/29/19 07:25 MCH 30 pg (28-32) 03/29/19 07:25 MCHC 34 % (30-34) 03/29/19 07:25 RDW 14.5 % (13.2-15.2) 03/29/19 07:25 Plt Count 258 K/mm3 (140-440) 03/29/19 07:25 Lymph % (Auto) 10.8 % (13.4-35.0) L 03/29/19 07:25 [place] % (Auto) 6.3 % (0.0-7.3) 03/29/19 07:25 Eos % (Auto) 0.1 % (0.0-4.3) 03/29/19 07:25 Baso % (Auto) 0.5 % (0.0-1.8) 03/29/19 07:25 Lymph # 1.3 K/mm3 (1.2-5.4) 03/29/19 07:25 [place] # 0.8 K/mm3 (0.0-0.8) 03/29/19 07:25 Eos # 0.0 K/mm3 (0.0-0.4) 03/29/19 07:25 Baso # 0.1 K/mm3 (0.0-0.1) 03/29/19 07:25 Seg Neutrophils % 82.3 % (40.0-70.0) H 03/29/19 07:25 Seg Neutrophils # 10.2 K/mm3 (1.8-7.7) H 03/29/19 07:25 PT 13.0 Sec. (12.2-14.9) 03/28/19 11:37 INR 1.01 (0.87-1.13) 03/28/19 11:37 295.01 ng/mlDDU (0-234) H 03/28/19 19:16 POC ABG pH 7.366 (7.35-7.45) 03/28/19 23:13 POC ABG pCO2 35.4 (35-45) 03/28/19 23:13 POC ABG pO2 83 (80-105) 03/28/19 23:13 POC ABG HCO3 20.3 (22-26 mml/L) 03/28/19 23:13 POC ABG Total CO2 21 (23-27mmol/L) 03/28/19 23:13 POC ABG O2 Sat 96 03/28/19 23:13 POC ABG Base Excess -5 ((-2) - (+3)mmol/L) 03/28/19 23:13 2 % 03/28/19 23:13 Sodium 141 mmol/L (137-145) 03/29/19 07:25 Potassium 4.6 mmol/L (3.6-5.0) 03/29/19 07:25 Chloride 105.6 mmol/L (98-107) 03/29/19 07:25 Carbon Dioxide 22 mmol/L (22-30) 03/29/19 07:25 18 mmol/L 03/29/19 07:25 BUN 14 mg/dL (7-17) 03/29/19 07:25 1.0 mg/dL (0.7-1.2) 03/29/19 07:25 Estimated GFR > 60 ml/min 03/29/19 07:25 14 % 03/29/19 07:25 Glucose 110 mg/dL (65-100) H 03/29/19 07:25 Calcium 9.3 mg/dL (8.4-10.2) 03/29/19 07:25 Magnesium 3.80 mg/dL (1.7-2.3) H 03/28/19 11:37 0.30 mg/dL (0.1-1.2) 03/29/19 07:25 AST 15 units/L (5-40) 03/29/19 07:25 ALT 11 units/L (7-56) 03/29/19 07:25 102 units/L (35-129) 03/29/19 07:25 7.3 g/dL (6.3-8.2) 03/29/19 07:25 4.2 g/dL (3.9-5) 03/29/19 07:25 1.4 % 03/29/19 07:25 Active Medications - Current Medications Current Medications: Generic Name Dose Route Start Last Admin Trade Name Freq PRN Reason Stop Dose Admin Acetaminophen 650 mg 03/28/19 13:44 Tylenol PO Q4H PRN Pain MILD(1-3)/Fever >100.5/HYDE Albuterol 2.5 mg 03/28/19 13:44 03/28/19 22:56 Proventil IH 2.5 mg Q4HRT PRN Administration Shortness Of Breath Enoxaparin Sodium 40 mg 03/28/19 22:00 03/28/19 23:03 Lovenox SUB-Q 40 mg QDAY@2200 DEBBY Administration Hydralazine HCl 20 mg 03/28/19 13:48 Apresoline IV Q6HR PRN Hypertension Azithromycin 500 mg/ Sodium 250 mls @ 250 mls/hr 03/28/19 15:00 03/28/19 21:19 Chloride IV Infused Q24H DEBBY Infusion Methylprednisolone Sodium Succinate 40 mg 03/28/19 22:00 03/29/19 09:35 Solu-Medrol IV 40 mg Q12HR DEBBY Administration Ondansetron HCl 4 mg 03/28/19 13:44 Zofran IV Q8H PRN Nausea And Vomiting Oxycodone/Acetaminophen 1 tab 03/28/19 17:23 03/28/19 23:04 Percocet 5/325 PO 1 tab Q4H PRN Administration Pain, Moderate (4-6) Sodium Chloride 10 ml 03/28/19 22:00 03/29/19 09:36 Sodium Chloride Flush Syringe 10 Ml IV 10 ml BID DEBBY Administration Sodium Chloride 10 ml 03/28/19 13:44 Sodium Chloride Flush Syringe 10 Ml IV PRN PRN LINE FLUSH
[2019-03-29] MEDS: ZITHROMAX 500 MG in NACL 0.9% 250ML 250 ML IV SCH (15:20)
[2019-03-29] MEDS: PERCOCET 5/325 PO PRN (15:30)
[2019-03-29] MEDS: PROVENTIL IH PRN (21:17)
[2019-03-29] MEDS: MILK OF MAGNESIA PO PRN (23:05)
[2019-03-29] MEDS: LOVENOX SUB-Q SCH (23:05)
[2019-03-30] MEDS: MILK OF MAGNESIA PO PRN (09:43)
[2019-03-30] MEDS: SOLU-Medrol IV SCH ×2 (09:44→21:47)
[2019-03-30] MEDS: SODIUM CHLORIDE FLUSH SYRINGE 10 ML IV SCH ×2 (09:44→21:47)
[2019-03-30] MEDS: ZITHROMAX PO SCH (09:44)
[2019-03-30] MEDS: PERCOCET 5/325 PO PRN (09:59)
[2019-03-30] MEDS ORDERED: ALUM-MAG HYDROX-SIMETH 200-200-20MG/5ML PO PRN (10:56)
--- NOTE | 2019-03-30 10:56 | Progress Note ---
Assessment and Plan Assessment and plan: Acute hypoxic respiratory failure. Etiology secondary to acute asthma exacerbation. Continue with supplemental oxygen and monitor closely. Accelerated hypertension. Continue antihypertensive medications. IV hydralazine PRN Acute asthma exacerbation. Nebulizer therapy, chest x ray, NIPPV, Magnesium, nebulizer therapy, ABG, pulse oximetry, Iv steroid therapy. GERD. Start Protonix. History Interval history: Patient still complains of shortness of breath but improved. Patient also complains of indigestion/heartburn. Hospitalist Physical - Constitutional Vitals: Temp Pulse Resp BP Pulse Ox 98.1 F 59 L 18 118/42 95 03/30/19 05:25 03/30/19 05:25 03/30/19 05:25 03/30/19 05:25 03/30/19 09:13 General appearance: Present: no acute distress - EENT Eyes: Present: PERRL, EOM intact ENT: hearing intact, clear oral mucosa, dentition normal - Neck Neck: Present: supple, normal ROM - Respiratory Respiratory effort: normal Respiratory: bilateral: CTA - Cardiovascular Rhythm: regular Heart Sounds: Present: S1 & S2. Absent: gallop, rub - Extremities Extremities: no ischemia, No edema, Full ROM - Abdominal General gastrointestinal: soft, non-tender, non-distended, normal bowel sounds - Integumentary Integumentary: Present: clear, warm, dry - Neurologic Neurologic: CNII-XII intact, moves all extremities Results - Labs CBC & Chem 7: 03/29/19 07:25 03/29/19 07:25 Labs: Laboratory Last Values WBC 12.3 K/mm3 (4.5-11.0) H 03/29/19 07:25 RBC 4.76 M/mm3 (3.65-5.03) 03/29/19 07:25 Hgb 14.2 gm/dl (10.1-14.3) 03/29/19 07:25 Hct 41.8 % (30.3-42.9) 03/29/19 07:25 MCV 88 fl (79-97) 03/29/19 07:25 MCH 30 pg (28-32) 03/29/19 07:25 MCHC 34 % (30-34) 03/29/19 07:25 RDW 14.5 % (13.2-15.2) 03/29/19 07:25 Plt Count 258 K/mm3 (140-440) 03/29/19 07:25 Lymph % (Auto) 10.8 % (13.4-35.0) L 03/29/19 07:25 [place] % (Auto) 6.3 % (0.0-7.3) 03/29/19 07:25 Eos % (Auto) 0.1 % (0.0-4.3) 03/29/19 07:25 Baso % (Auto) 0.5 % (0.0-1.8) 03/29/19 07:25 Lymph # 1.3 K/mm3 (1.2-5.4) 03/29/19 07:25 [place] # 0.8 K/mm3 (0.0-0.8) 03/29/19 07:25 Eos # 0.0 K/mm3 (0.0-0.4) 03/29/19 07:25 Baso # 0.1 K/mm3 (0.0-0.1) 03/29/19 07:25 Seg Neutrophils % 82.3 % (40.0-70.0) H 03/29/19 07:25 Seg Neutrophils # 10.2 K/mm3 (1.8-7.7) H 03/29/19 07:25 PT 13.0 Sec. (12.2-14.9) 03/28/19 11:37 INR 1.01 (0.87-1.13) 03/28/19 11:37 295.01 ng/mlDDU (0-234) H 03/28/19 19:16 POC ABG pH 7.366 (7.35-7.45) 03/28/19 23:13 POC ABG pCO2 35.4 (35-45) 03/28/19 23:13 POC ABG pO2 83 (80-105) 03/28/19 23:13 POC ABG HCO3 20.3 (22-26 mml/L) 03/28/19 23:13 POC ABG Total CO2 21 (23-27mmol/L) 03/28/19 23:13 POC ABG O2 Sat 96 03/28/19 23:13 POC ABG Base Excess -5 ((-2) - (+3)mmol/L) 03/28/19 23:13 2 % 03/28/19 23:13 Sodium 141 mmol/L (137-145) 03/29/19 07:25 Potassium 4.6 mmol/L (3.6-5.0) 03/29/19 07:25 Chloride 105.6 mmol/L (98-107) 03/29/19 07:25 Carbon Dioxide 22 mmol/L (22-30) 03/29/19 07:25 18 mmol/L 03/29/19 07:25 BUN 14 mg/dL (7-17) 03/29/19 07:25 1.0 mg/dL (0.7-1.2) 03/29/19 07:25 Estimated GFR > 60 ml/min 03/29/19 07:25 14 % 03/29/19 07:25 Glucose 110 mg/dL (65-100) H 03/29/19 07:25 Calcium 9.3 mg/dL (8.4-10.2) 03/29/19 07:25 Magnesium 3.80 mg/dL (1.7-2.3) H 03/28/19 11:37 0.30 mg/dL (0.1-1.2) 03/29/19 07:25 AST 15 units/L (5-40) 03/29/19 07:25 ALT 11 units/L (7-56) 03/29/19 07:25 102 units/L (35-129) 03/29/19 07:25 7.3 g/dL (6.3-8.2) 03/29/19 07:25 4.2 g/dL (3.9-5) 03/29/19 07:25 1.4 % 03/29/19 07:25 Active Medications - Current Medications Current Medications: Generic Name Dose Route Start Last Admin Trade Name Freq PRN Reason Stop Dose Admin Acetaminophen 650 mg 03/28/19 13:44 Tylenol PO Q4H PRN Pain MILD(1-3)/Fever >100.5/HYDE Albuterol 2.5 mg 03/28/19 13:44 03/29/19 21:17 Proventil IH 2.5 mg Q4HRT PRN Administration Shortness Of Breath Azithromycin 500 mg 03/30/19 10:00 03/30/19 09:44 Zithromax PO 04/01/19 10:01 500 mg QDAY DEBBY Administration Enoxaparin Sodium 40 mg 03/28/19 22:00 03/29/19 23:05 Lovenox SUB-Q 40 mg QDAY@2200 DEBBY Administration Hydralazine HCl 20 mg 03/28/19 13:48 Apresoline IV Q6HR PRN Hypertension Magnesium Hydroxide 30 ml 03/29/19 21:47 03/30/19 09:43 Milk Of Magnesia PO 30 ml Q4H PRN Administration Constipation Methylprednisolone Sodium Succinate 40 mg 03/28/19 22:00 03/30/19 09:44 Solu-Medrol IV 40 mg Q12HR DEBBY Administration Ondansetron HCl 4 mg 03/28/19 13:44 Zofran IV Q8H PRN Nausea And Vomiting Oxycodone/Acetaminophen 1 tab 03/28/19 17:23 03/30/19 09:59 Percocet 5/325 PO 1 tab Q4H PRN Administration Pain, Moderate (4-6) Sodium Chloride 10 ml 03/28/19 22:00 03/30/19 09:44 Sodium Chloride Flush Syringe 10 Ml IV 10 ml BID DEBBY Administration Sodium Chloride 10 ml 03/28/19 13:44 Sodium Chloride Flush Syringe 10 Ml IV PRN PRN LINE FLUSH
[2019-03-30] MEDS: PROVENTIL IH PRN (15:40)
[2019-03-30] MEDS: LOVENOX SUB-Q SCH (21:47)
--- NOTE | 2019-03-31 08:38 | Discharge Summary ---
Providers - Providers Date of Admission: 03/28/19 13:44 Date of discharge: 03/31/19 Attending physician: AB WILHELM Primary care physician: GALINA CAMARENA Hospitalization Reason for admission: asthma exac Condition: Serious Hospital course: 53 YO Female with Asthma, Hearing Loss presented to ED and was admitted with diagnosis of acute hypoxic respiratory failure and asthma exacerbation. Pt treated with NIPPV, nebulizer therapy, IV steroid therapy with improvement in symptoms. Pt admitted to medical floor. The patient had significant improvement throughout hospitalization. Patient also received antibiotics empirically. Chest x-ray showed no evidence of infiltrate, pleural effusion or pneumothorax. Patient returned back to her baseline respiratory status and is felt to have received maximal hospital benefit for discharge. Dedicated discharge time 32 minutes. Disposition: DC- TO HOME OR SELFCARE Time spent for discharge: 32 - Discharge Diagnoses (1) Acute hypoxemic respiratory failure Status: Acute (2) Status asthmaticus Status: Acute Qualifiers: Asthma severity: severe Asthma persistence: unspecified Qualified Code(s): J45.902 - Unspecified asthma with status asthmaticus Core Measure Documentation - Palliative Care Palliative Care/ Comfort Measures: Not Applicable - Core Measures Any of the following diagnoses?: none Exam - Constitutional Vitals: Temp Pulse Resp BP Pulse Ox 98.7 F 57 L 16 137/64 93 03/31/19 05:25 03/31/19 05:25 03/31/19 05:25 03/31/19 05:25 03/31/19 05:25 General appearance: Present: no acute distress, well-nourished - EENT Eyes: Present: PERRL ENT: hearing intact, clear oral mucosa - Neck Neck: Present: supple, normal ROM - Respiratory Respiratory effort: normal Respiratory: bilateral: CTA - Cardiovascular Heart Sounds: Present: S1 & S2. Absent: rub, click - Extremities Extremities: pulses symmetrical, No edema Peripheral Pulses: within normal limits - Abdominal General gastrointestinal: Present: soft, non-tender, non-distended, normal bowel sounds Female genitourinary: Present: normal - Integumentary Integumentary: Present: clear, warm, dry - Musculoskeletal Musculoskeletal: gait normal, strength equal bilaterally - Psychiatric Psychiatric: appropriate mood/affect, intact judgment & insight - Neurologic Neurologic: CNII-XII intact, moves all extremities Plan Activity: advance as tolerated Weight Bearing Status: Weight Bear as Tolerated Diet: regular [facility] [Referring[facility] - 7 Days Prescriptions: methylPREDNISolone [Medrol 4MG DOSEPAK (21 tabs)] 4 mg PO QAM #1 tab.ds.pk Pantoprazole [Protonix TAB] 40 mg PO QDAY #30 tablet Azithromycin [Zithromax TAB] 500 mg PO QDAY #5 tablet
[2019-03-31] MEDS: SOLU-Medrol IV SCH (09:08)
[2019-03-31] MEDS: ZITHROMAX PO SCH (09:08)
[2019-03-31] MEDS: SODIUM CHLORIDE FLUSH SYRINGE 10 ML IV SCH (09:09)
[2019-03-31] MEDS ORDERED: PROTONIX PO SCH (10:00)
[2019-03-31 12:41] VITALS: BP 122/46
== END 2019-03-31 13:26 | disposition home or self-care (01) | DRG 189 ==
LOC: ED 11:17 → 3A 13:44 → EDBD 13:44 → 3A 17:10
PROVIDERS: ADMIT Internal Medicine; ATTEND Hospitalist
PROC: 4A033R1 Measurement of Arterial Saturation, Peripheral, Percutaneous Approach (ICD-10-PCS; principal; 2019-03-28)
DX: J96.01 Acute respiratory failure with hypoxia (principal); J45.52 Severe persistent asthma with status asthmaticus; E87.2 Acidosis; I10 Essential (primary) hypertension; F41.9 Anxiety disorder, unspecified; I16.0 Hypertensive urgency; K21.9 Gastro-esophageal reflux disease without esophagitis; Z98.51 Tubal ligation status
CPT/HCPCS: 36415; 36600; 71045; 80048; 80053; 82803; 83735; 85025; 85379; 85610; 93005; 93010; 94640; 94644; 94760; G0378; J0171; J0456; J1650; J2920; J2930; J3475; J7040; J7050

== ENCOUNTER 2019-06-01 09:44 | Inpatient (IN) | payer MEDICAID ==
[2019-06-01] MEDS ORDERED: MAGNESIUM SULFATE 2GM/50ML 2 GM/50 ML BAG IV ONE (09:47)
[2019-06-01] MEDS ORDERED: MAXIPIME/NS 1 GM/100 ML 1 GM/100 ML BAG IV ONE (09:47)
--- NOTE | 2019-06-01 09:49 | Emergency Department Report ---
ED Shortness of Breath HPI - General Stated Complaint: KEIKO Time Seen by Provider: 06/01/19 09:45 Source: patient, EMS Mode of arrival: Stretcher Limitations: No Limitations - History of Present Illness Initial Comments: She is a 53-year-old female that presents emergency room with complaints of shortness of breath, difficulty breathing. Patient states she feels examine asthma attack. Patient states she was recently here for a lung infection. Patient states her symptoms are worsening. Patient states pain going on for 2 days. Patient brought in by EMS and was given albuterol and Medrol prior to arrival. Patient states she still having symptoms. Patient denies chest pain. Patient denies fever and chills. Patient states also have a cough. Patient complains wheezing. Patient was sent here by her primary care office. MD Complaint: shortness of breath, cough, "asthma attack" -: Sudden Consistency: constant Improves With: rest, bronchodilators Worsens With: exertion, movement, coughing, inspiration Known History Of: asthma Associated Symptoms: cough, sputum production Treatments Prior to Arrival: oxygen, bronchodilator, other - Related Data Home Oxygen Therapy: No Home Medications Medication Instructions Recorded Confirmed Last Taken No Known Home Medications [No 06/01/19 06/01/19 Unknown Reported Home Medications] Allergies Allergy/AdvReac Type Severity Reaction Status Date / Time No Known Allergies Allergy Unverified 09/13/18 08:32 ED Review of Systems ROS: Stated complaint: KEIKO Other details as noted in HPI Constitutional: denies: chills, fever Eyes: denies: eye pain, eye discharge, vision change ENT: denies: ear pain, throat pain Respiratory: cough, shortness of breath, SOB with exertion, SOB at rest, wheezi ng Cardiovascular: denies: chest pain, palpitations Endocrine: no symptoms reported Gastrointestinal: denies: abdominal pain, nausea, diarrhea Genitourinary: denies: urgency, dysuria, discharge Musculoskeletal: denies: back pain, joint swelling, arthralgia Skin: denies: rash, lesions Neurological: denies: headache, weakness, paresthesias Psychiatric: denies: anxiety, depression Hematological/Lymphatic: denies: easy bleeding, easy bruising ED Past Medical Hx - Past Medical History Previous Medical History?: Yes Hx Asthma: Yes Additional medical history: hearing impaired - Surgical History Past Surgical History?: Yes Additional Surgical History: tubal ligation - Family History Family history: no significant - Social History Smoking Status: Never Smoker Substance Use Type: None - Medications Home Medications: Home Medications Medication Instructions Recorded Confirmed Last Taken Type No Known Home Medications [No 06/01/19 06/01/19 Unknown History Reported Home Medications] ED Physical Exam - General Limitations: No Limitations General appearance: alert, in no apparent distress - Head Head exam: Present: atraumatic, normocephalic - Eye Eye exam: Present: normal appearance - ENT ENT exam: Present: mucous membranes moist - Neck Neck exam: Present: normal inspection - Respiratory Respiratory exam: Present: respiratory distress, wheezes, rhonchi - Cardiovascular Cardiovascular Exam: Present: regular rate, normal rhythm. Absent: systolic murmur, diastolic murmur, rubs, gallop - GI/Abdominal GI/Abdominal exam: Present: soft, normal bowel sounds. Absent: tenderness - Rectal Rectal exam: Present: deferred - Extremities Exam Extremities exam: Present: normal inspection - Back Exam Back exam: Present: normal inspection - Neurological Exam Neurological exam: Present: alert, oriented X3 - Psychiatric Psychiatric exam: Present: normal affect, normal mood - Skin Skin exam: Present: warm, dry, intact, normal color. Absent: rash ED Course Vital Signs 06/01/19 06/01/19 06/01/19 10:28 10:29 14:35 Temperature 98.1 F Pulse Rate 89 Pulse Rate [ 89 Anterior Bilateral Throughout] Respiratory 22 23 Rate Respiratory 20 Rate [Anterior Bilateral Throughout] Blood Pressure 128/64 [Left] O2 Sat by Pulse 95 96 Oximetry - Reevaluation(s) Reevaluation #1: Patient still wheezing but patient states she is feeling better. Patient will be admitted to the hospitalist service for further evaluation treatment. Patient agrees plan of care. I discussed all results patient 06/01/19 11:24 - Consultations Consultation #1: Hospitalist consulted for admission. Hospitalist admit patient. 06/01/19 11:24 ED Medical Decision Making - Lab Data Result diagrams: 06/01/19 09:55 06/01/19 09:55 - Radiology Data Radiology results: report reviewed, image reviewed no acute findings on chest x-ray. - Medical Decision Making Patient is a 53-year-old female that presented to the emergency room with compla ints of shortness of breath and status asthmaticus. Patient was sent over primary care for hypoxia. Patient found to be in respiratory distress and wheezing. Patient given Cipro Medrol and up-year-old by EMS. Patient given DuoNeb, magnesium and placed on oxygen ER. Patient admitted to the hospitalist service. Patient's chest x-ray negative. Patient's labs unremarkable except for hypoxia on ABG. - Differential Diagnosis hypoxia, sob. asthma, status asthmaticus. Critical Care Time: Yes Critical care attestation.: If time is entered above; I have spent that time in minutes in the direct care of this critically ill patient, excluding procedure time. Critical Care Time: 35 minutes ED Disposition Clinical Impression: Hypoxia, SOB (shortness of breath), Difficulty breathing Status asthmaticus Qualifiers: Asthma severity: severe Asthma persistence: persistent Qualified Code(s): J45.52 - Severe persistent asthma with status asthmaticus Disposition: OP ADMIT IP TO THIS HOSP Is pt being admited?: Yes Does the pt Need Aspirin: No Condition: Critical Time of Disposition: 11:26
[2019-06-01 10:28] LABS: Basophils # (Auto) 0.1 K/mm3 (0.0-0.1); Basophils % (Auto) 0.9 % (0.0-1.8); Eosinophils # (Auto) 0.4 K/mm3 (0.0-0.4); Eosinophils % (Auto) 5.8 % (0.0-4.3); Hematocrit 43.5 % (30.3-42.9); Hemoglobin 15.1 gm/dl (10.1-14.3); Lymphocytes # (Auto) 2.9 K/mm3 (1.2-5.4); Lymphocytes % (Auto) 37.5 % (13.4-35.0); Mean Corpuscular HGB Conc 35 % (30-34); Mean Corpuscular Volume 87 fl (79-97); Monocytes # (Auto) 0.6 K/mm3 (0.0-0.8); Platelet Count 250 K/mm3 (140-440); Red Blood Count 4.98 M/mm3 (3.65-5.03); Red Cell Distribution Width 14.6 % (13.2-15.2)
--- NOTE | 2019-06-01 10:28 | XRay Report ---
CHEST 2 VIEWS INDICATION: Dyspnea. COMPARISON: 03/28/2019 FINDINGS: Support devices: None. Heart: Within normal limits. Pulmonary vasculature: Lungs/pleura: Stable hyperinflation of the lungs. No airspace disease or pleural effusion. No pneumo thorax. Additional findings: None. IMPRESSION: 1. No acute findings. 2. COPD. Signer Name: Lior Kwon MD Signed: 06/01/2019 10:24 AM Workstation Name: [id number]
[2019-06-01 10:43] LABS: Alanine Aminotransferase 10 units/L (7-56); Albumin 4.3 g/dL (3.9-5); BUN/Creatinine Ratio 11; Blood Urea Nitrogen 12 mg/dL (7-17); Calcium 9.5 mg/dL (8.4-10.2); Hemolysis Index 10
[2019-06-01] MEDS ORDERED: DUONEB *Not for PRN Use IH ONE ×2 (11:31→14:36)
[2019-06-01] MEDS: PERCOCET 5/325 PO PRN (21:32)
[2019-06-01] MEDS ORDERED: PROVENTIL IH PRN (22:51)
[2019-06-01] MEDS ORDERED: ZOFRAN IV PRN (23:00)
[2019-06-01] MEDS ORDERED: SODIUM CHLORIDE FLUSH SYRINGE 10 ML IV PRN (23:00)
[2019-06-01] MEDS ORDERED: TYLENOL PO PRN (23:00)
[2019-06-01] MEDS ORDERED: DILAUDID IV PRN (23:00)
[2019-06-01] MEDS: SOLU-Medrol IV SCH (23:23)
[2019-06-01] MEDS: PEPCID PO SCH (23:24)
[2019-06-01] MEDS: SODIUM CHLORIDE FLUSH SYRINGE 10 ML IV SCH (23:25)
[2019-06-02 05:19] LABS: Basophils % (Auto) 0.3 % (0.0-1.8); Eosinophils % (Auto) 0.1 % (0.0-4.3); Hematocrit 42.3 % (30.3-42.9); Hemoglobin 14.3 gm/dl (10.1-14.3); Lymphocytes # (Auto) 1.2 K/mm3 (1.2-5.4); Lymphocytes % (Auto) 9.1 % (13.4-35.0); Mean Corpuscular HGB Conc 34 % (30-34); Mean Corpuscular Volume 88 fl (79-97); Monocytes # (Auto) 0.3 K/mm3 (0.0-0.8); Monocytes % (Auto) 2.4 % (0.0-7.3); Platelet Count 246 K/mm3 (140-440); Red Blood Count 4.81 M/mm3 (3.65-5.03); Red Cell Distribution Width 14.7 % (13.2-15.2)
[2019-06-02] MEDS: SOLU-Medrol IV SCH ×2 (05:32→13:54)
[2019-06-02 05:42] LABS: Alanine Aminotransferase 9 units/L (7-56); Albumin 4.1 g/dL (3.9-5); BUN/Creatinine Ratio 17; Blood Urea Nitrogen 19 mg/dL (7-17); Calcium 9.7 mg/dL (8.4-10.2); Hemolysis Index 16
--- NOTE | 2019-06-02 07:01 | Event Note ---
Date: 06/01/19 See H/p in reports Status Astmaticus
--- NOTE | 2019-06-02 07:24 | History and Physical Report ---
CHIEF COMPLAINT: Increasing wheezing and shortness of breath for 2 days. Not responding. HISTORY OF PRESENT ILLNESS: A 53-year-old female with history of asthma, comes in for increasing wheezing and shortness of breath and difficulty breathing. The patient has a history of asthma. The patient was recently here for same symptoms, was given antibiotics and sent home. For the last 2 days, the patient has been using a nebulizer treatment with no response. Cough productive of mucoid sputum. No fever or chills. No recent travel. No exacerbating or relieving factors. PAST MEDICAL HISTORY: Significant for asthma and a history of impaired hearing. PAST SURGICAL HISTORY: Tubal ligation. FAMILY HISTORY: No significant family history. SOCIAL HISTORY: Does not smoke. REVIEW OF SYSTEMS: Significant for increasing shortness of breath and wheezing. Otherwise, review of systems negative. PHYSICAL EXAMINATION: GENERAL: Middle-aged female, cooperative during examination. VITAL SIGNS: Blood pressure is 136/57, temperature is 98.3, pulse is 54, respirations were initially 28, came down to 20. Initial sats were low, in the high 80s. HEENT: Unremarkable. Pupils are equal and reactive. NECK: Supple. CHEST: Accessory muscles of respiration are prominent. Intercostal retraction present. LUNGS: Bilateral inspiratory and expiratory rhonchi present. Diminished air entry. CARDIOVASCULAR: S1, S2 heard. No gallop, no murmur, no rub. Apical impulse in left fifth intercostal space and midclavicular line. ABDOMEN: Soft and benign. No hepatosplenomegaly. No guarding, no rigidity. Hernial orifices are normal. EXTREMITIES: Good pedal pulses. No pedal edema. CENTRAL NERVOUS SYSTEM: Alert and oriented x 4, nonfocal exam. SKIN: Normal. DIAGNOSTIC DATA: Chest x-ray, no acute findings. LABORATORY DATA: Significant for normal CBC with H and H of 15.1 and 43.5, slightly high. ABG significant for pH of 7.37, pCO2 of 31.9, pO2 of 66, slightly low, bicarbonate is 18.4, O2 sats on ABG was 93%. Electrolytes are normal. ASSESSMENT AND PLAN: 1. Status asthmaticus. The patient to be given nebulizer treatments frequently and IV Solu-Medrol and IV Levaquin. The patient was initially given cefepime in the Emergency Room, which was changed to Levaquin. The patient also initiated on methylprednisone 60 mg q.8 hours. 2. Deep venous thrombosis prophylaxis, Lovenox 40 mg subcutaneous daily and famotidine 20 mg twice a day as gastrointestinal prophylaxis. [facility]# [id number] LILIANA/LUDMILA
[2019-06-02] MEDS: DUONEB *Not for PRN Use IH SCH ×3 (07:26→15:34)
[2019-06-02] MEDS ORDERED: LEVAQUIN 750MG/150ML 750 MG/150 ML BAG IV SCH (10:00)
[2019-06-02] MEDS: SODIUM CHLORIDE FLUSH SYRINGE 10 ML IV SCH (10:10)
[2019-06-02] MEDS: PEPCID PO SCH (10:10)
[2019-06-02] MEDS: PERCOCET 5/325 PO PRN ×2 (12:12→18:49)
--- NOTE | 2019-06-02 12:38 | Discharge Summary ---
Providers - Providers Date of Admission: 06/02/19 10:02 Date of discharge: 06/02/19 Attending physician: SUSANA LEON [facility] Condition: Critical Pertinent studies: Chest x-ray: No acute findings Hospital course: This is a 53-year-old female with history of asthma presents to the hospital with complaints of progressive worsening of shortness of breath for last 2 days. Patient was admitted to medical floor with scheduled nebs, iv abx, iv steroids and supplemental O2 to keep O2 sat at 94%. CXR showed no infiltrates. Patients symptom improved with medical management. [facility]u. Discharge diagnosis: Acute asthma exacerbation/status asthmaticus Acute bronchitis Disposition: - TO HOME OR SELFCARE Time spent for discharge: 34 minutes Core Measure Documentation - Palliative Care Palliative Care/ Comfort Measures: Not Applicable - Core Measures Any of the following diagnoses?: none Exam - Physical Exam Narrative exam: GENERAL: well-developed and well-nourished ringer female lying on bed appeared to be in no discomfort. HEENT: Normocephalic. Atraumatic. No conjunctival congestion or icterus. Patient has moist mucous membranes. NECK: Supple. Trachea midline. CHEST/LUNGS: Clear to auscultated bilaterally, breathing nonlabored. No wheezes crackles or rhonchi. HEART/CARDIOVASCULAR: Regular in rate and rhythm. S1 and S2 positive. ABDOMEN: Abdomen is soft, nontender. Patient has normal bowel sounds. SKIN: There is no rash. Warm and dry. NEURO: No focal motor deficit. Follows command. MUSCULOSKELETAL: No joint effusion or tenderness. EXTRIMITY: No edema, no cyanosis or clubbing. PSYCH: Cooperative. - Constitutional Vitals: Temp Pulse Resp BP Pulse Ox 98.0 F 60 20 139/44 97 06/02/19 11:34 06/02/19 11:34 06/02/19 11:34 06/02/19 11:34 06/02/19 11:34 Plan Activity: advance as tolerated Weight Bearing Status: Weight Bear as Tolerated Diet: low fat, low salt Follow up with: WENDIE PARRISH MD [Primary Care Provider] - 7 Days JB MARIO MD [Staff Physician] - 7 Days Prescriptions: predniSONE [Deltasone] 50 mg PO QDAY #5 tab ALBUTEROL Inhaler (OR & NICU) [Proair] 2 puff IH QID PRN 30 Days #1 vial PRN Reason: Shortness Of Breath Azithromycin [Zithromax] 250 mg PO DAILY #5 tablet
[2019-06-02 17:55] VITALS: BP 100/42
[2019-06-02] MEDS ORDERED: LOVENOX SUB-Q SCH (22:00)
== END 2019-06-02 20:07 | disposition home or self-care (01) | DRG 202 ==
LOC: ED 09:44 → 3A 11:50 → OBSVTOIN 06-02 10:02
PROVIDERS: ADMIT Internal Medicine; ATTEND Internal Medicine
PROC: 4A033R1 Measurement of Arterial Saturation, Peripheral, Percutaneous Approach (ICD-10-PCS; principal; 2019-06-01)
DX: J20.9 Acute bronchitis, unspecified (principal); J45.52 Severe persistent asthma with status asthmaticus; R09.02 Hypoxemia; Z98.51 Tubal ligation status
CPT/HCPCS: 36415; 36600; 71045; 80053; 82803; 82962; 83036; 85025; 94640; 96365; 96367; G0378; J0692; J1956; J2930; J3475

== ENCOUNTER 2019-06-17 13:24 | Inpatient (IN) | payer MEDICAID ==
[2019-06-17] MEDS ORDERED: DUONEB *Not for PRN Use IH ONE (13:47)
--- NOTE | 2019-06-17 13:48 | Event Note ---
ED Screening Note Date of service: 06/17/19 Time: 13:45 ED Screening Note: This is a 53 y.o. F. that presents to the ER with SOB, wheezing, and body aches for several days. PMH asthma Denies recent fever, chills, nausea and vomiting. This initial assessment/diagnostic orders/clinical plan/treatment(s) is/are subject to change based on patients health status, clinical progression and re- assessment by fellow clinical providers in the ED. Further treatment and workup at subsequent clinical providers discretion. Patient/guardian urged not to elope from the ED as their condition may be serious if not clinically assessed and managed. Initial orders include: CXR Duoneb
[2019-06-17] MEDS ORDERED: ATROVENT IH ONE ×2 (14:10→16:51)
[2019-06-17] MEDS ORDERED: DECADRON IM ONE (14:10)
[2019-06-17] MEDS ORDERED: PROVENTIL IH ONE ×2 (14:11→16:51)
[2019-06-17] MEDS ORDERED: NACL 0.9% 1000 ML 1,000 ML IV ONE (14:19)
[2019-06-17] MEDS ORDERED: DECADRON IV ONE (14:19)
[2019-06-17] MEDS ORDERED: PERCOCET 5/325 PO ONE (14:20)
--- NOTE | 2019-06-17 14:26 | XRay Report ---
CHEST PA AND LATERAL VIEWS INDICATION: SOB and cough. COMPARISON: 06/01/2019. FINDINGS: Support devices: None. Heart: Within normal limits. Lungs/Pleura: No consolidation or effusion is seen. No pneumothorax. There is mild peribronchial cuff ing centrally in both lungs, greater on the right. IMPRESSION: 1. Mild peribronchial cuffing within the perihilar lungs, greater on the right. This could be seen in the setting of lower airways disease. No consolidation is seen. Signer Name: Aleksandar Jackson MD Signed: 06/17/2019 2:21 PM Workstation Name: [id number]
[2019-06-17 14:43] LABS: Basophils # (Auto) 0.1 K/mm3 (0.0-0.1); Basophils % (Auto) 0.9 % (0.0-1.8); Eosinophils # (Auto) 0.3 K/mm3 (0.0-0.4); Eosinophils % (Auto) 2.8 % (0.0-4.3); Hematocrit 44.9 % (30.3-42.9); Hemoglobin 15.7 gm/dl (10.1-14.3); Lymphocytes # (Auto) 1.3 K/mm3 (1.2-5.4); Lymphocytes % (Auto) 13.9 % (13.4-35.0); Mean Corpuscular HGB Conc 35 % (30-34); Mean Corpuscular Volume 87 fl (79-97); Monocytes # (Auto) 0.7 K/mm3 (0.0-0.8); Monocytes % (Auto) 7.1 % (0.0-7.3); Platelet Count 288 K/mm3 (140-440); Red Blood Count 5.14 M/mm3 (3.65-5.03); Red Cell Distribution Width 15.1 % (13.2-15.2)
--- NOTE | 2019-06-17 14:58 | Emergency Department Report ---
ED Shortness of Breath HPI - General Chief Complaint: Adult Asthma Stated Complaint: WHEEZING/BACK PAIN Time Seen by Provider: 06/17/19 13:45 Source: patient Mode of arrival: Ambulatory Limitations: No Limitations - History of Present Illness Initial Comments: Patient is a 53-year-old female who presents the emergency room with complaints of wheezing and shortness of breath that began last night. Patient has a history of asthma and uses an inhaler and nebulizer treatments. States she used one nebulizer treatment this morning and several last night. Patient states she has been coughing, generalized body aches, and discomfort with coughing and ta alexus deep breaths. She denies any fever, leg swelling, any other symptoms. - Related Data Previous Rx's Medication Instructions Recorded Last Taken Type ALBUTEROL Inhaler (OR & NICU) 2 puff IH QID PRN 30 Days #1 vial 06/02/19 Unknown Rx [Proair] Azithromycin [Zithromax] 250 mg PO DAILY #5 tablet 06/02/19 Unknown Rx Nebulizer Accessories [Sootheneb 1 each MC Q6H PRN #1 each 06/17/19 Unknown Rx [id number] Med Cup] Nebulizer [Compact Compressor 1 each MC Q6H #1 each 06/17/19 Unknown Rx Nebulizer] levoFLOXacin [Levaquin] 750 mg PO QDAY #8 tablet 06/17/19 Unknown Rx predniSONE [Deltasone] 20 mg PO QDAY #5 tab 06/17/19 Unknown Rx Allergies Allergy/AdvReac Type Severity Reaction Status Date / Time aspirin Allergy Unknown Verified 06/17/19 13:45 ED Review of Systems ROS: Stated complaint: WHEEZING/BACK PAIN Other details as noted in HPI Comment: All other systems reviewed and negative ED Past Medical Hx - Past Medical History Hx Diabetes: No Hx Asthma: Yes Hx COPD: No Additional medical history: hearing impaired - Surgical History Additional Surgical History: tubal ligation - Social History Smoking Status: Never Smoker Substance Use Type: None - Medications Home Medications: Home Medications Medication Instructions Recorded Confirmed Last Taken Type ALBUTEROL Inhaler (OR & NICU) 2 puff IH QID PRN 30 Days #1 vial 06/02/19 Unknown Rx [Proair] Azithromycin [Zithromax] 250 mg PO DAILY #5 tablet 06/02/19 Unknown Rx Nebulizer Accessories [Sootheneb 1 each MC Q6H PRN #1 each 06/17/19 Unknown Rx [id number] Med Cup] Nebulizer [Compact Compressor 1 each MC Q6H #1 each 06/17/19 Unknown Rx Nebulizer] levoFLOXacin [Levaquin] 750 mg PO QDAY #8 tablet 06/17/19 Unknown Rx predniSONE [Deltasone] 20 mg PO QDAY #5 tab 06/17/19 Unknown Rx ED Physical Exam - General Limitations: No Limitations General appearance: alert, in no apparent distress - Head Head exam: Present: atraumatic, normocephalic - Eye Eye exam: Present: normal appearance - ENT ENT exam: Present: mucous membranes moist - Respiratory Respiratory exam: Present: respiratory distress (moderate), wheezes (diffusely), decreased breath sounds (bilaterally, poor air movement), prolonged expiratory. Absent: rales, rhonchi, stridor, chest wall tenderness, accessory muscle use - Cardiovascular Cardiovascular Exam: Present: normal rhythm, tachycardia, normal heart sounds. Absent: systolic murmur, diastolic murmur, rubs, gallop - Neurological Exam Neurological exam: Present: alert, oriented X3 - Psychiatric Psychiatric exam: Present: normal affect, normal mood - Skin Skin exam: Present: warm, dry, intact ED Course Vital Signs 06/17/19 06/17/19 06/17/19 13:46 14:40 14:55 Temperature 98.6 F Pulse Rate 124 H Pulse Rate [ 89 Anterior Bilateral Throughout] Respiratory 16 18 Rate Respiratory 24 Rate [Anterior Bilateral Throughout] Blood Pressure 159/82 Blood Pressure [Right] O2 Sat by Pulse 98 Oximetry 06/17/19 17:24 Temperature 98.8 F Pulse Rate 84 Pulse Rate [ Anterior Bilateral Throughout] Respiratory 18 Rate Respiratory Rate [Anterior Bilateral Throughout] Blood Pressure Blood Pressure 104/70 [Right] O2 Sat by Pulse 100 Oximetry - Consultations Consultation #1: 06/17/19 18:[address] jurado regarding pt and results, will evaluate in the ED ED Medical Decision Making - Lab Data Result diagrams: 06/17/19 14:25 06/17/19 14:25 Lab Results 06/17/19 06/17/19 06/17/19 Range/Units 14:16 14:25 14:25 WBC 9.3 (4.5-11.0) K/mm3 RBC 5.14 H (3.65-5.03) M/mm3 Hgb 15.7 H (10.1-14.3) gm/dl Hct 44.9 H (30.3-42.9) % MCV 87 (79-97) fl MCH 31 (28-32) pg MCHC 35 H (30-34) % RDW 15.1 (13.2-15.2) % Plt Count 288 (140-440) K/mm3 Lymph % (Auto) 13.9 (13.4-35.0) % [place] % (Auto) 7.1 (0.0-7.3) % Eos % (Auto) 2.8 (0.0-4.3) % Baso % (Auto) 0.9 (0.0-1.8) % Lymph # 1.3 (1.2-5.4) K/mm3 [place] # 0.7 (0.0-0.8) K/mm3 Eos # 0.3 (0.0-0.4) K/mm3 Baso # 0.1 (0.0-0.1) K/mm3 Seg Neutrophils % 75.3 H (40.0-70.0) % Seg Neutrophils # 7.0 (1.8-7.7) K/mm3 D-Dimer 292.45 H (0-234) ng/mlDDU Sodium 140 (137-145) mmol/L Potassium 4.4 (3.6-5.0) mmol/L Chloride 102.3 (98-107) mmol/L Carbon Dioxide 21 L (22-30) mmol/L Anion Gap 21 mmol/L BUN 11 (7-17) mg/dL Creatinine 1.1 (0.7-1.2) mg/dL Estimated GFR > 60 ml/min BUN/Creatinine Ratio 10 % Glucose 126 H (65-100) mg/dL Calcium 9.9 (8.4-10.2) mg/dL Total Bilirubin 0.20 (0.1-1.2) mg/dL AST 15 (5-40) units/L ALT 14 (7-56) units/L Alkaline Phosphatase 98 (35-129) units/L Total Protein 7.9 (6.3-8.2) g/dL Albumin 4.4 (3.9-5) g/dL Albumin/Globulin Ratio 1.3 % - Medical Decision Making Patient is a 53-year-old female who presents the emergency room with complaints of wheezing and shortness of breath that began last night. Patient has a history of asthma and uses an inhaler and nebulizer treatments. States she used one nebulizer treatment this morning and several last night. Patient states she has been coughing, generalized body aches, and discomfort with coughing and taking deep breaths. She denies any fever, leg swelling, any other symptoms. initially with elevated heart rate and blood pressure which improved upon repeat. on exam: pt diffusely wheezing, moderate respiratory distress, prolonged expiratory. pt given two continuous nebulizer treatments 10mg of albuterol and 0.5mg of atrovent, steroids, and magnesium. continued to have wheezing. spoke with Dr. jurado, hospitalist regarding pt and results, will evaluate pt in the ED. Dr. Jurado, hospitalist states that pt has improved and no longer having wheezing during his examination, please see Dr. Yi note for discharge of pt. Critical care attestation.: If time is entered above; I have spent that time in minutes in the direct care of this critically ill patient, excluding procedure time. ED Disposition Clinical Impression: SOB (shortness of breath) Asthma with status asthmaticus Qualifiers: Asthma severity: unspecified severity Asthma persistence: unspecified Qualified Code(s): J45.902 - Unspecified asthma with status asthmaticus Disposition: TO HOME OR SELFCARE Is pt being admited?: No Does the pt Need Aspirin: No Condition: Fair
[2019-06-17 15:05] LABS: Alanine Aminotransferase 14 units/L (7-56); Albumin 4.4 g/dL (3.9-5); BUN/Creatinine Ratio 10; Blood Urea Nitrogen 11 mg/dL (7-17); Calcium 9.9 mg/dL (8.4-10.2); Hemolysis Index 17
--- NOTE | 2019-06-17 17:02 | Cat Scan Report ---
CTA CHEST WITH IV CONTRAST INDICATION: elevated d-dimer, r/o PE. Chest pain, shortness of breath TECHNIQUE: Axial CT images were obtained through the chest after injection of IV contrast. 3 plane MIP reconstru ctions were produced. All CT scans at this location are performed using CT dose reduction for ALARA b y means of automated exposure control. COMPARISON: None available. FINDINGS: Pulmonary Arteries: No filling defects are seen in the pulmonary arterial tree. Thoracic Aorta: No acute abnormality. Heart: Normal. Coronary Arteries: No significant calcification. Lungs: There is a 5 mm nodule within the medial right middle lobe on series 2 image 62. There is a la rge bleb within the anterior inferior right lower hemithorax. There is mild peribronchial cuffing thr oughout. Mild groundglass/mosaic attenuation is noted throughout. Within the left lower lobe, there a re a few peribronchovascular reticular opacities. Pleura: No pleural effusion. No pneumothorax. Lymph Nodes: No significant adenopathy. Additional Findings: None. Upper Abdomen: No acute findings. Skeletal Structures: No significant osseous abnormality. IMPRESSION: 1. No CT evidence for pulmonary embolism. 2. Emphysematous changes with large bulla in the right lower hemithorax anteriorly. 3. Mild lower airways disease. This could be chronic or acute on chronic. No pneumonia. 4. 5 mm noncalcified pulmonary nodule right middle lobe medially. See below for follow-up recommendat ions. INCIDENTAL PULMONARY NODULE RECOMMENDATIONS Solid Nodule size <6 mm -- Single or Multiple - Low Risk Patient: No routine follow-up - High Risk Patient: Optional CT at 12 months Note These recommendations do not apply to lung cancer screening, patients with immunosuppression, o r patients with known primary cancer. Note Newly detected indeterminate nodule in persons 35 years of age or older. Persons under the age of 35 should not receive follow-up unless there is a known primary cancer. Low Risk Patient -- minimal or absent history of smoking and of other known risk factors. High Risk Patient -- history of smoking or of other known risk factors. Nodule dimensions are average of long and short axes, rounded to the nearest millimeter. Based on 2017 Fleischner Society Guidelines found in Radiology 2017 284:228-243. https://doi.org/10.1 148/radiol.[email or web address] Signer Name: Aleksandar Jackson MD Signed: 06/17/2019 4:57 PM Workstation Name: [id number]
[2019-06-17 17:24] VITALS: BP 104/70
[2019-06-17] MEDS ORDERED: MAGNESIUM SULFATE 2GM/50ML 2 GM/50 ML BAG IV ONE (17:54)
--- NOTE | 2019-06-17 20:04 | Event Note ---
Date: 06/17/19 Asthma exacerbation Improved Does not meet Admission criteria Discharge on Prednisone and Levaquin 750 mg po qd for 8 days
== END 2019-06-17 20:49 | disposition home or self-care (01) | DRG 203 ==
LOC: ED 13:24 → 3A 18:15
PROVIDERS: ADMIT Internal Medicine; ATTEND Internal Medicine
DX: J45.902 Unspecified asthma with status asthmaticus (principal); Z98.51 Tubal ligation status; Z79.51 Long term (current) use of inhaled steroids
CPT/HCPCS: 36415; 71046; 71275; 80053; 85025; 85379; 94644; G0378; J1100; J3475; J7030; Q9967

== ENCOUNTER 2019-06-20 12:17 | Emergency (ER) | payer MEDICAID ==
[~2019-06-20 12:17] MED LIST: ADRENALIN ONE; ATROPINE 0.1% (CARDIAC) ONE; INTROPIN DRIP 800 MG/D5W 250 ML IV ONE
--- NOTE | 2019-06-20 12:36 | Emergency Department Report ---
ED CPR HPI - General Chief Complaint: Cardiac Arrest/CPR Stated Complaint: CARDIAC ARREST Time Seen by Provider: 06/20/19 12:29 Source: EMS (verbal report received from EMS.ems notes not available at time of chart dictation), RN notes reviewed, old records reviewed Mode of arrival: Stretcher Limitations: Physical Limitation - History of Present Illness Initial Comments: This is a 53-year-old female, not known to this provider previously, brought to the hospital by emergency medical services as out of hospital cardiac arrest. As per verbal report from EMS, patient contacted 911, with reported complaint of shortness of breath. EMS reports that they found the patient on her stairs, not breathing and pulseless. EMS provided [id number] ventilation, oral pharyngeal airway, they were not able to endotracheally intubate the patient. Presenting rhythm is pulseless electrical activity. EMS providers high-quality CPR, and standard ACLS medications in the field. Transport time approximately 20-25 minutes. Upon arrival to the ER, patient pulseless, continued pulseless left electrical activity, Accu-Chek within normal limits, pupils fixed and dilated, and did not react to light. Patient receives standard ACLS interventions, including tfv-[id number] ventilation, high-quality aggressive CPR, and standard medications. Unfortunately, pulses cannot be obtained. After prolonged continued resuscitation, efforts terminated secondary to medical futility. -: minute(s) Place: home Bystander CPR Performed: No AED Applied by Bystander/Field Sales Agent: No Initial Findings in the Field: no pulse, PEA ROSC in the Field: No Associated Injuries: No Treatments Prior to Arrival: BMV, other airway device, chest compressions, epinephrine mgs # - Related Data Previous Rx's Medication Instructions Recorded Last Taken Type ALBUTEROL Inhaler (OR & NICU) 2 puff IH QID PRN 30 Days #1 vial 06/02/19 Unknown Rx [Proair] Azithromycin [Zithromax] 250 mg PO DAILY #5 tablet 06/02/19 Unknown Rx Nebulizer Accessories [Sootheneb 1 each MC Q6H PRN #1 each 06/17/19 Unknown Rx [id number] Med Cup] Nebulizer [Compact Compressor 1 each MC Q6H #1 each 06/17/19 Unknown Rx Nebulizer] levoFLOXacin [Levaquin] 750 mg PO QDAY #8 tablet 06/17/19 Unknown Rx predniSONE [Deltasone] 20 mg PO QDAY #5 tab 06/17/19 Unknown Rx Allergies Allergy/AdvReac Type Severity Reaction Status Date / Time aspirin Allergy Unknown Verified 06/17/19 13:45 ED Review of Systems ROS: Stated complaint: CARDIAC ARREST Other details as noted in HPI Comment: Unobtainable due to pts medical conditions ED Past Medical Hx - Past Medical History Hx Diabetes: No Hx Asthma: Yes Hx COPD: No Additional medical history: hearing impaired - Surgical History Additional Surgical History: tubal ligation - Social History Smoking Status: Never Smoker Substance Use Type: None - Medications Home Medications: Home Medications Medication Instructions Recorded Confirmed Last Taken Type ALBUTEROL Inhaler (OR & NICU) 2 puff IH QID PRN 30 Days #1 vial 06/02/19 Unknown Rx [Proair] Azithromycin [Zithromax] 250 mg PO DAILY #5 tablet 06/02/19 Unknown Rx Nebulizer Accessories [Sootheneb 1 each MC Q6H PRN #1 each 06/17/19 Unknown Rx [id number] Med Cup] Nebulizer [Compact Compressor 1 each MC Q6H #1 each 06/17/19 Unknown Rx Nebulizer] levoFLOXacin [Levaquin] 750 mg PO QDAY #8 tablet 06/17/19 Unknown Rx predniSONE [Deltasone] 20 mg PO QDAY #5 tab 06/17/19 Unknown Rx ED Physical Exam - General Limitations: Altered Mental Status General appearance: obtunded - Head Head exam: Present: atraumatic, normocephalic - Eye Eye exam: Present: other (pupils fixed and dilated, do not react to light) - ENT ENT exam: Present: other (oral pharyngeal airway is noted) - Respiratory Respiratory exam: Present: other (no breath sounds unless [id number] ventilation is applied). Absent: normal lung sounds bilaterally - Cardiovascular Cardiovascular Exam: Absent: regular rate (the patient is pulseless) - GI/Abdominal GI/Abdominal exam: Absent: distended - Extremities Exam Extremities exam: Present: normal inspection, other (there is intraosseous line noted in the right lower extremity) - Back Exam Back exam: Present: normal inspection - Neurological Exam Neurological exam: Present: altered - Skin Skin exam: Present: dry ED Medical Decision Making - Medical Decision Making Differential diagnosis, including not limited to: Acute coronary syndrome, pulmonary embolism, hypercapnic respiratory failure, tension pneumothorax Critical care attestation.: If time is entered above; I have spent that time in minutes in the direct care of this critically ill patient, excluding procedure time. ED Disposition Clinical Impression: Cardiac arrest Disposition: [id number] Is pt being admited?: No Does the pt Need Aspirin: No Condition: Undetermined
== END 2019-06-20 19:09 ==
LOC: ED 12:17
DX: I46.9 Cardiac arrest, cause unspecified (principal); J45.909 Unspecified asthma, uncomplicated; Z98.51 Tubal ligation status; Z79.899 Other long term (current) drug therapy
CPT/HCPCS: 82962; 99285; J0171; J0461; J1265